=== PATIENT | female | born 1940 | race American Indian/Alaskan Native ===

== ENCOUNTER 2017-09-02 07:43 | Day surgery (SDC) | payer MEDICARE ==
[~2017-09-02 07:43] MED LIST: ANCEF/STERILE WATER 2 GM/20 ML 2 GM/20 ML SYRINGE IV NR; NACL 0.9% 1000 ML 1,000 ML IV SCH
[2017-09-02] MEDS ORDERED: DILAUDID IV PRN (08:52)
[2017-09-02] MEDS ORDERED: ZOFRAN IV PRN (08:52)
[2017-09-02] MEDS ORDERED: PEPCID PO NR (09:00)
[2017-09-02 09:08] LABS: Basophils % (Auto) 0.8 % (0.0-1.8); Eosinophils % (Auto) 3.7 % (0.0-4.3); Hematocrit 36.3 % (30.3-42.9); Hemoglobin 12.4 gm/dl (10.1-14.3); Mean Corpuscular HGB Conc 34 % (30-34); Mean Corpuscular Hemoglobin 30 pg (28-32); Mean Corpuscular Volume 87 fl (79-97); Platelet Count 237 K/mm3 (140-440); Red Blood Count 4.16 M/mm3 (3.65-5.03); Red Cell Distribution Width 15.6 % (13.2-15.2); White Blood Count 9.7 K/mm3 (4.5-11.0)
--- NOTE | 2017-09-02 09:09 | Anesthesia Consultation ---
Anesthesia Consult and Med Hx Date of service: 09/02/17 - Airway Anesthetic Teeth Evaluation: Poor (missing lower teeth, denies loose teeth), Dentures (top) ROM Head & Neck: Adequate Mental/Hyoid Distance: Adequate Mallampati Class: Class II Intubation Access Assessment: Probably Good - Pulmonary Exam CTA: Yes - Cardiac Exam Cardiac Exam: RRR - Pre-Operative Health Status ASA Pre-Surgery Classification: ASA4 Proposed Anesthetic Plan: General - Pulmonary Hx Smoking: No Hx Asthma: No Hx Sleep Apnea: No - Cardiovascular System Hx Hypertension: Yes Hx Heart Attack/AMI: Yes (21 yrs ago) Hx Percutaneous Transluminal Coronary Angioplasty (PTCA): Yes (stent x 1, 21 YRS AGO) - Central Nervous System Hx Seizures: No CVA: No Hx Psychiatric Problems: No - Endocrine Hx Renal Disease: Yes (HD YESTERDAY, RIGHT PERMACATH) Hx End Stage Renal Disease: Yes Hx Cirrhosis: No Hx Insulin Dependent Diabetes: Yes Hx Thyroid Disease: Yes Hx Hypothyroidism: Yes - Other Systems Hx Cancer: No Hx Obesity: Yes
--- NOTE | 2017-09-02 09:09 | Anesthesia Day of Surgery ---
Anesthesia Day of Surgery - Day of Surgery Patient Examined: Yes Patient is NPO: Yes
[2017-09-02 09:24] LABS: Calcium 8.9 mg/dL (8.4-10.2); Chloride 96.7 mmol/L (98-107); Potassium 4.1 mmol/L (3.6-5.0)
[2017-09-02 09:51] LABS: INR 0.98 (0.87-1.13)
[2017-09-02] MEDS ORDERED: DILAUDID ONE (10:21)
[2017-09-02] MEDS ORDERED: DIPRIVAN 10 MG/ML IV ONE (10:21)
[2017-09-02] MEDS ORDERED: XYLOCAINE MPF 2% ONE (11:21)
[2017-09-02] MEDS ORDERED: NACL 0.9% IR ONE (11:40)
[2017-09-02] MEDS ORDERED: XYLOCAINE 1% 20 mL INFILTRATI ONE ×2 (11:40)
[2017-09-02] MEDS ORDERED: MARCAINE-EPI 0.5%-1:200,000 INFILTRATI ONE ×2 (11:41)
[2017-09-02] MEDS ORDERED: HEPARIN 10,000 UNITS/10 ML 2,000 UNIT in NACL 0.9% 500 ML 500 ML IR ONE (11:41)
[2017-09-02] MEDS ORDERED: HEPARIN 10,000 UNITS/10 ML ONE (12:46)
[2017-09-02] MEDS ORDERED: ZOFRAN ONE (12:47)
[2017-09-02] MEDS ORDERED: ROBINUL ONE (12:51)
--- NOTE | 2017-09-02 13:06 | Short Stay Summary ---
Short Stay Documentation Date of service: 09/02/17 - History H&P: obtained from office - Allergies and Medications Current Medications: Allergies No Known Allergies Allergy (Unverified 09/01/17 10:04) Home Medications Medication Instructions Recorded Confirmed Last Taken Type Amlodipine Besylate [Amlodipine 10 mg PO DAILY 09/02/17 09/02/17 09/02/17 History Besylate] Aspirin [Aspirin EC] 81 mg PO DAILY 09/02/17 09/02/17 09/02/17 History Furosemide [Furosemide] 40 mg PO BID 09/02/17 09/02/17 09/02/17 History Insulin Aspart [NovoLOG 100 0 09/02/17 09/01/17 History UNITS/ML VIAL] Insulin Aspart [NovoLOG 100 35 unit SUB-Q PC 09/02/17 09/02/17 09/01/17 History UNITS/ML VIAL] Insulin Glargine [Lantus VIAL] 35 unit SUB-Q AC 09/02/17 09/02/17 09/01/17 History Levothyroxine [Synthroid] 125 mcg PO QAM 09/02/17 09/02/17 09/02/17 History Lisinopril [Lisinopril] 20 mg PO BID 09/02/17 09/02/17 09/02/17 History Rosuvastatin Calcium [Rosuvastatin 20 mg PO QDAY 09/02/17 09/02/17 09/01/17 History Calcium] Sevelamer Carbonate [Renvela] 800 mg PO DAILY 09/02/17 09/02/17 09/01/17 History hydrALAZINE [Apresoline TAB] 100 mg PO TID 09/02/17 09/02/17 09/02/17 History Active Medications Famotidine (Pepcid) 20 mg PO PREOP NR Stop: 09/02/17 23:59 Last Admin: 09/02/17 09:15 Dose: 20 mg Hydromorphone HCl (Dilaudid) 0.5 mg IV Q10MIN PRN PRN Reason: Pain , Severe (7-10) Stop: 09/02/17 18:00 Sodium Chloride (Nacl 0.9% 1000 Ml) 1,000 mls @ 42 mls/hr IV DIRECT KARINA Last Admin: 09/02/17 08:50 Dose: 42 mls/hr Ondansetron HCl (Zofran) 4 mg IV ONCE PRN PRN Reason: Nausea And Vomiting Stop: 09/02/17 18:00 - Brief post op/procedure progress note Date of procedure: 09/02/17 Pre-op diagnosis: ESRD, poorly maturing av fistula Post-op diagnosis: same Procedure: AV fistula revions/ elevation left Upper extremity Anesthesia: GETA Findings: patent av fistula Surgeon: ELIDA SUMMERS Estimated blood loss: 50-100ml Pathology: none Condition: stable - Hospital course Hospital course: Outpatient surgery, discharged after recovery - Disposition Condition at discharge: Good Disposition: [id number]-01 TO HOME OR SELFCARE Short Stay Discharge Plan Wound: open to air, keep clean and dry (keep arm elevated on pillows, use sponge ball to maintain range of motion) Follow up with: EDGAR KLINE [Other] - 7 Days
[2017-09-02 15:31] VITALS: BP 149/50
--- NOTE | 2017-09-02 16:32 | Post Anesthesia Evaluation ---
- Post Anesthesia Evaluation Patient Participated: Yes Airway Patent: Yes Stable Respiratory Function: Yes Nausea/Vomiting: No Temp > 96.8F: Yes Pain Manageable: Yes Adequeate Hydration: Yes Anesthesia Complications: No
--- NOTE | 2017-09-08 19:35 | Operative Report ---
PREOPERATIVE DIAGNOSIS: End-stage renal disease with a maturing left arteriovenous fistula. POSTOPERATIVE DIAGNOSIS: End-stage renal disease with a maturing left arteriovenous fistula. PROCEDURE: Left AV fistula revision/left upper extremity AV fistula elevation. ANESTHESIA: General. FINDINGS: Suitable vein for fistula elevation, patent AV fistula with a palpable thrill, patent radial pulse. SURGEON: Kieran Somers M.D. ESTIMATED BLOOD LOSS: 50-100 mL. PATHOLOGY: None. CONDITION: Stable. INDICATIONS: This patient has a brachiobasilic fistula that needs elevation. She was brought to Surgery for this purpose. DESCRIPTION OF PROCEDURE: Consent was obtained. The patient was taken to the operating room and placed in supine position. Appropriate level of anesthesia was provided and the patient's arm was prepped and draped in sterile fashion. The procedure began with an incision along the medial aspect of the arm. This was initially through scar from the previous surgery. This extended up the arm toward the axilla. We dissected through the subcutaneous tissue and uncovered the basilic vein. The dissection was straightforward as this was a superficial vessel. We continued the dissection until we reached the axilla. We then used a Kirsty-Wick tunneler to tunnel a superficial space on the more lateral aspect of the arm. This will be the future location of the new fistula. We administered heparin and then controlled the vessel proximally. It was transected with the Tay scissors. We marked the vessel to maintain proper orientation. The vessel had to be dilated appropriately. It remained a good vessel for fistula creation. We then used the Kirsty-Wick tunneler and tunneled this fistula through the superficial space such that the end of the fistula was in the vicinity of the transected segment. We maintained proper orientation and then proceeded on with an end-to-end anastomosis using 6-0 Prolene. This was done in circumferential fashion. At the conclusion of this, we released the pressure of the inflow and had a good thrill through the fistula. During this process, we ligated branches through the fistula and made sure hemostasis was well controlled. No further intervention was required at this point. We prepared for closure. We used QuikClot and removed this from the wound. We used electrocautery and took some time to maintain proper hemostasis. The wounds were closed with 3-0 Vicryl in running fashion followed by skin approximation with 4-0 Monocryl. This concluded the procedure. The patient was awakened from anesthesia after sterile dressing was applied. He was taken to the recovery room having suffered no complications. JOB# [id number] SHANIA/ALONZO
== END 2017-09-02 16:35 | disposition home or self-care (01) ==
LOC: OR 07:43
PROVIDERS: ATTEND Surgery Vascular Surgery
DX: T82.898A Other specified complication of vascular prosthetic devices, implants and grafts, initial encounter (principal); I12.0 Hypertensive chronic kidney disease with stage 5 chronic kidney disease or end stage renal disease; N18.6 End stage renal disease; E11.22 Type 2 diabetes mellitus with diabetic chronic kidney disease; E03.9 Hypothyroidism, unspecified; E66.9 Obesity, unspecified; Z95.5 Presence of coronary angioplasty implant and graft; Y83.8 Other surgical procedures as the cause of abnormal reaction of the patient, or of later complication, without mention of misadventure at the time of the procedure; Z98.51 Tubal ligation status; Z79.82 Long term (current) use of aspirin; Z99.2 Dependence on renal dialysis
CPT/HCPCS: 36415; 36832; 80048; 82962; 85025; 85610; J0690; J1170; J1644; J2405; J2704; J7030; J7040